=== PATIENT | female | born 1940 | race Caucasian/White ===

== ENCOUNTER 2019-09-16 20:35 | Emergency (ER) | payer MEDICARE, OTHER ==
[~2019-09-16] VITALS: Ht 160 cm; Wt 56.7 kg
[~2019-09-16 20:35] MED LIST: ASPI325 PO; CIPR500 PO; CLIMARA TD; FERR325 PO; FISH1000 PO; Flonase 0.05% N16 GM; LEVSOD50 PO; METR500 PO; Prilosec Otc20 MG PO; TOCO400 PO
== END 2019-09-16 21:56 | disposition home or self-care (01) ==
LOC: ER 20:35
DX: K22.4 Dyskinesia of esophagus (principal); E03.9 Hypothyroidism, unspecified; Z79.899 Other long term (current) drug therapy
CPT/HCPCS: 96374; 99283-25; J2405; J7030

== ENCOUNTER → 2021-05-06 | Outpatient (CLI) | payer MEDICARE, OTHER ==
[~2021-05-06] MED LIST changes: +CODACE30; +EUTHYROX88 MCG; +FISH OIL + D31 EACH; +TUMS500 MG; +VIT1CAPS12
[2021-05-06 18:07] LABS: Source, Urine Clean Catch
[2021-05-06 19:15] LABS: Appearance, Urine Cloudy (Clear); Bilirubin, Urine Neg (Neg); Blood, Urine 3+ (Neg); Glucose Qualitative, Urine Neg (Neg); Ketones, Urine Neg (Neg); Leukocyte Esterase, Urine 3+ (Neg); Nitrite, Urine Neg (Neg); Protein, Urine 2+ (Neg); Urobilinogen, Urine NORM (Normal); pH, Urine 6.5 (5.0-8.0)
[2021-05-06 19:32] LABS: Color, Urine Pale Yellow (P-Yellow)
[2021-05-06 19:34] LABS: White Blood Cells, Urine 50-100 /hpf (0-5)
[2021-05-06 19:35] LABS: Bacteria Many /hpf; Red Blood Cells, Urine 0-2 /hpf (0-2); Squamous Epithelial Cells Few /hpf (Few)
== END | disposition home or self-care (01) ==
LOC: LAB SHORT 18:05
PROVIDERS: Family Medicine
DX: R30.9 Painful micturition, unspecified (principal)
CPT/HCPCS: 81001; 87077; 87086; 87186